=== PATIENT | male | born 1940 | race Caucasian/White ===

== ENCOUNTER → 2019-03-05 14:00 | Outpatient (BNVA) | payer MEDICARE, BC, SELFPAY | PROVIDERS: PCP Family Medicine; Visit Provider Nurse Practitioner Adult Health | DX: G56.21 Lesion of ulnar nerve, right upper limb (principal); I10 Essential (primary) hypertension; J44.9 Chronic obstructive pulmonary disease, unspecified | CPT/HCPCS: 95909; 99203 ==

== ENCOUNTER → 2019-03-06 09:22 | Outpatient (BNVA) | payer MEDICARE, BC, SELFPAY | PROVIDERS: PCP Family Medicine; Visit Provider Psychiatry & Neurology Neurology | DX: R69 Illness, unspecified (principal) ==

== ENCOUNTER → 2019-12-24 13:43 | Outpatient (BNVA) | payer MEDICARE, BC, SELFPAY | PROVIDERS: PCP Family Medicine; Referring Provider Family Medicine; Visit Provider Nurse Practitioner Gerontology | DX: R31.0 Gross hematuria (principal); N21.0 Calculus in bladder; J44.9 Chronic obstructive pulmonary disease, unspecified; I10 Essential (primary) hypertension | CPT/HCPCS: 99204; 99215 ==

== ENCOUNTER 2019-12-28 08:31 | Outpatient (CLI) | payer MEDICARE, BC, SELFPAY ==
[2019-12-30 17:22] LABS: COVID-19 RT-PCR Result NEGATIVE (Negative)
== END 2019-12-28 08:51 ==
PROVIDERS: Urology; PCP Family Medicine; Visit Provider Nurse Practitioner Gerontology
DX: Z11.59 Encounter for screening for other viral diseases (principal)
CPT/HCPCS: U0003

== ENCOUNTER 2019-12-31 06:48 | Day surgery (SDC) | payer MEDICARE, BC, SELFPAY ==
[2019-12-31] VITALS (9 sets, daily range): BP systolic 95–132; BP diastolic 52–74; PULSE 50–71; RESP 14–20; TEMP 35.9–36.4; O2SAT 92–95
--- NOTE | 2019-12-31 07:09 | HPE_ITS ---
Date of service: 12/31/19 Time of Service: 08:00 Assessment and Plan Assessment and plan (1) Bladder stone: Status: Acute (2) Gross hematuria: Status: Acute Assessment and plan: We will move ahead with cystoscopy and retrograde pyelogram to complete his hematuria workup. We will plan to use the Holmium laser to fragment his known bladder stone and evacuate the stone particles. There is a possibility that we may need to keep him overnight with bladder irrigation should significant bleeding be identified. History of Present Illness History of Present Illness Chief Complaint: Bladder stone Narrative: Bry is a 79-year-old male referred to urology by [facility]. He reports that starting in mid November he was having a change to his LUTS and gross hematuria. He was placed on Proscar. He was already on Flomax 0.4. He notes that nothing majorly changed over the course of time. He says that a urine was taken for question of a UTI due to the dysuria and change of the LUTS. He was treated with Bactrim. He noted that he felt better but then within a week he returned to his PCPs office and again was tested for question of a UTI. He was also sent to [facility] for a urology referral. However they were unable to see him until January. He reports that in December his frequent urination was dysuria plus hematuria continued. He again saw his PCPs office they ordered an ultrasound to find a stone in the bladder. After ultrasound was completed he was then referred to our office. Patient has a history of kidney stones. His first that he mentions was in 2011. He then had another stone in 2013 this 1 was removed from his bladder (Dr Powers at [facility] [place] He notes that his current symptoms are very similar to his previous bladder stone. He has not seen any gross blood in the urine for the past week. His severe pain has resolved as well. Review of Systems Narrative: No fevers or chills No vision change or dysphasia No diabetes or thyroid dysfunction Hx COPD. No sputum production or hemoptysis No chest pain or palpitations No nausea, vomiting, hepatitis, ulcers, jaundice, diarrhea or constipation No seizures, strokes or peripheral neuropathy No bleeding disorders or anemia No gout. Hx compression fracture spine PFSH Social History Smoking/Tobacco Use Status: Former Tobacco Use Quit Date: 06/13/97 Alcohol Intake: current Alcohol Intake frequency: a few times a month Alcohol type: hard liquor Drug use: Never Substance use type: does not use Do you feel safe at home: Yes Do you feel safe in your relationship?: Yes Meds Home Medications and Allergies Home Medications Medication Instructions Recorded Confirmed Type alendronate 70 mg PO .Tuesday08/07/14 12/31/19 History aspirin [Aspir 81] 81 mg PO DAILY 08/07/14 12/31/19 History cholecalciferol (vitamin D3) 1 tab PO DAILY 08/07/14 12/31/19 History zdfmpujtxdq-eotmwhdixwb-yux D3 2 tab PO DAILY 08/07/14 12/31/19 History rredtmrd-mgy-MZ-lycopen-lutein 1 tab PO DAILY 08/07/14 12/31/19 History [Centrum Silver Tablet] naproxen 500 mg PO PRN PRN 08/07/14 12/31/19 History omega-3 fatty acids-fish oil 1 tab PO DAILY 08/07/14 12/31/19 History rosuvastatin [Crestor] 40 mg PO HS 08/07/14 12/31/19 History tiotropium bromide [Spiriva] 2 puff INHALATION DAILY 08/07/14 12/24/19 History diltiazem HCl 120 mg 120 mg PO DAILY 03/02/19 12/31/19 History capsule,extended release 24 hr, controlled diltiazem HCl 300 mg 300 mg PO DAILY 03/02/19 12/31/19 History capsule,extended release 24 hr lisinopril 40 mg tablet 40 mg PO DAILY 03/02/19 12/31/19 History naproxen sodium 220 mg capsule 220 mg PO Q12H 03/02/19 12/31/19 History tamsulosin 0.4 mg capsule 0.4 mg PO DAILY 03/05/19 12/31/19 History finasteride 5 mg tablet 5 mg PO DAILY 12/24/19 12/31/19 History umeclidinium [Incruse Ellipta] 1 inh INHALATION DAILY 12/27/19 12/31/19 History Allergies Allergy/AdvReac Type Severity Reaction Status Date / Time morphine Allergy Severe skin Unverified 12/31/19 06:54 crawling atenolol Allergy Unverified 12/31/19 06:54 bupropion HCl Allergy Unverified 12/31/19 06:54 [From Wellbutrin] Exam Const General: cooperative, healthy appearing, comfortable and no acute distress Neck Neck: supple Resp Effort & Inspection: decreased respiratory effort Auscultation: diminished lung sounds Cardio Rate: regular rate Rhythm: regular rhythm GI Palpation: soft and no masses Neuro General: patient alert, patient awake and patient oriented x3 Results Last Vital Signs Temp 36.2 C L 12/31/19 07:02 Pulse 71 12/31/19 07:02 Resp 16 12/31/19 07:02 BP 124/74 12/31/19 07:02 Pulse Ox 92 L 12/31/19 07:02 COVID-19 Screening Have you,or household,traveled outside [place] in last 14 days?: Yes Had IN PERSON contact w/suspected or confirmed C-19 person: No
[2019-12-31] MEDS: Lactated Ringers 1,000 ML 80 ML IV (07:21)
--- NOTE | 2019-12-31 08:15 | DI.RAD_ITS ---
EXAM: XR RETROGRADE IN OR CLINICAL HISTORY: bladder stone TECHNIQUE: 2D and realtime digital imaging was performed. CONTRAST MATERIAL: Refer to procedure report. COMPARISON: No exams were available for comparison FINDINGS: Fluoroscopy was provided for Dr. Samaniego during the performance of a retrograde evaluation of the sincere l collecting system. Please refer to the procedure report for complete details. Fluoro time: 25.7 seconds IMPRESSION: RADIATION DOSE DELIVERED:
[2019-12-31] MEDS: Albuterol/Ipratropium 3 ML UPD VIAL (09:00)
[2019-12-31] MEDS: ceFAZolin 1 GM/50 ML BAG IVPB (09:00)
[2019-12-31] MEDS: Omnipaque 300 MG/ML 50 ML BTL (09:35)
--- NOTE | 2019-12-31 10:16 | W.PM.OP ---
Date of service: 12/31/19 Time of Service: 10:16 Operative Note Operative Note DATE OF PROCEDURE: 12/31/19 PRE-OP DIAGNOSIS: 1. Gross Hematuria 2. Bladder Stone POST-OP DIAGNOSIS: same PROCEDURE: Cystoscopy, bilateral retrograde pyelogram, Holmium laser lithotripsy of bladder stones SURGEON: Nimesh Samaniego ANESTHESIA: spinal ESTIMATED BLOOD LOSS: 20 PATHOLOGY: other (stones for chemical analysis) COMPLICATIONS: None Patient was transported to: PACU Patient's condition: stable Implants: 18 Portuguese Mathews catheter Indications: This is a 79-year-old gentleman who had been seen and his primary care providers for lower urinary tract symptoms. He had dysuria and gross hematuria. On one occasion, he was treated successfully for urinary tract infection. When his symptoms recurred, a renal ultrasound was obtained. A stone was found within his bladder. He presents now for cystoscopy and retrograde pyelogram to complete his hematuria work-up. We will address his stones as well. Findings: Four separate bladder stones Procedure Description: The patient was given preoperative IV antibiotics. After successful induction of spinal anesthesia, he was placed in the dorsal lithotomy position. His genitalia was prepped and draped sterilely. 2% Xylocaine jelly was instilled into the urethra to act as a local anesthetic. A 22 Portuguese rigid cystoscope was passed through the urethra into the bladder. The urethra and bladder were inspected with a 30 degree lens. The pendulous, bulbous and membranous urethra was all appeared normal with no strictures. The prostatic urethra showed some lateral lobe enlargement with no significant median lobe. The bladder neck was entered the bladder mucosa was inspected. At the base of the bladder, for a yellow-colored, smooth stones were identified. Each of these stones measured up to 2 cm in dimension. Both ureteral orifice ease could be visualized. Each orifice was cannulated with a 6 Portuguese access catheter and a retrograde film was obtained by injecting Omnipaque through the access catheter under fluoroscopic guidance. Both ureters and collecting systems appeared normal with no filling defects. We then reinspected the remainder of the bladder mucosa and no papillary or nodular tumors were seen. We then utilized a 1000 ?m holmium laser fiber to fragment the visible bladder stones. We used a power setting of 800 and a rate of 8. The stones fragmented well we were able to evacuate all of the stone fragments and send them off to the lab for chemical analysis. At the completion of the procedure, no large stone burden was seen within the bladder. The bladder was filled with irrigant. An 18 Portuguese Mathews catheter was passed through the urethra into the bladder. The catheter balloon was inflated with 10 cc of sterile water and the catheter was hooked to gravity drainage. We will plan on removing the catheter when his spinal anesthetic wears off. He was taken to the recovery room in stable condition.
[2019-12-31] MEDS: Phenazopyridine 200 MG TAB PO (12:11)
--- NOTE | 2019-12-31 13:01 | W.PM.DSUDISC ---
Discharge Plan Disposition Patient Disposition: HOME Condition: Stable Discharge Details Attending Provider: Nimesh Samaniego Primary Care Provider: Nghia Clifton Home Meds and New Rx's Prescriptions: No Action tamsulosin [Flomax] 0.4 mg capsule 0.4 mg PO DAILY RF: 0 finasteride 5 mg tablet 5 mg PO DAILY RF: 0 diltiazem HCl [DILT-XR] 120 mg capsule,ext.rel 24h degradable 120 mg PO DAILY RF: 0 lisinopril 40 mg tablet 40 mg PO DAILY RF: 0 diltiazem HCl [Cartia XT] 300 mg capsule,extended release 24hr 300 mg PO DAILY RF: 0 naproxen sodium [Aleve] 220 mg capsule 220 mg PO Q12H RF: 0 alendronate 70 MG tablet 70 mg PO .TUESDAY MORNING RF: 0 aspirin [Aspir-81] 81 MG tablet,delayed release (DR/EC) 81 mg PO DAILY RF: 0 naproxen 500 MG tablet 500 mg PO PRN PRNRF: 0 cholecalciferol (vitamin D3) 1,000 UNIT capsule 1 tab PO DAILY RF: 0 rosuvastatin [Crestor] 40 MG tablet 40 mg PO HS RF: 0 Spiriva with HandiHaler 18 MCG capsule, w/inhalation device 2 puff Inhalation DAILY RF: 0 Centrum Silver 1 EACH tablet 1 tab PO DAILY RF: 0 omega-3 fatty acids-fish oil 1 EACH capsule 1 tab PO DAILY RF: 0 ddcgqbwbjyg-eypxhomyaeu-qvi D3 1 EACH tablet 2 tab PO DAILY RF: 0 Incruse Ellipta 62.5 mcg/actuation blister with device 1 inh INHALATION DAILY RF: 0 Discharge Instructions Additional Instructions: Followup 2 to 3 weeks to review stone analysis Activity:: Activity as Tolerated Shower/Bathe:: 24 hours Diet:: As Tolerated Discharge Orders Discharge Orders: Discharge Order (Routine); Ordered 12/31/19 Ordered By: Nimesh Samaniego DS: Diagnosis Discharge Diagnosis (1) Bladder stone: Status: Acute (2) Gross hematuria: Status: Acute
== END 2019-12-31 13:18 | disposition home or self-care (01) ==
PROVIDERS: PCP Family Medicine; Visit Provider Urology
PROC: (CPT 52317; principal; 2019-12-31 08:30)
DX: N21.0 Calculus in bladder (principal); R31.0 Gross hematuria; R30.0 Dysuria
CPT/HCPCS: 52317; 52005; NC; 74420; 82365; J0690; J2001; J2250; J2405; J7620; Q9967

== ENCOUNTER → 2020-01-24 12:38 | Outpatient (BNVA) | payer MEDICARE, BC, SELFPAY | PROVIDERS: PCP Family Medicine; Referring Provider Family Medicine; Visit Provider Nurse Practitioner Gerontology | DX: N21.0 Calculus in bladder (principal); R31.0 Gross hematuria; J44.9 Chronic obstructive pulmonary disease, unspecified; I10 Essential (primary) hypertension | CPT/HCPCS: 99213 ==

== ENCOUNTER → 2023-02-02 08:00 | Outpatient (BNVA) | payer MEDICARE, BC, SELFPAY | PROVIDERS: PCP Family Medicine; Referring Provider Family Medicine; Visit Provider Psychiatry & Neurology Neurology | DX: R26.89 Other abnormalities of gait and mobility (principal); I10 Essential (primary) hypertension; J44.9 Chronic obstructive pulmonary disease, unspecified | CPT/HCPCS: 99205 ==

== ENCOUNTER → 2023-03-23 09:02 | Outpatient (BNVA) | payer MEDICARE, BC, SELFPAY | PROVIDERS: PCP Family Medicine; Referring Provider Family Medicine; Visit Provider Psychiatry & Neurology Neurology | DX: R26.89 Other abnormalities of gait and mobility (principal); G23.8 Other specified degenerative diseases of basal ganglia; I10 Essential (primary) hypertension; J44.9 Chronic obstructive pulmonary disease, unspecified | CPT/HCPCS: 99214 ==

== ENCOUNTER → 2024-02-28 13:36 | Outpatient (BNVA) | payer MEDICARE, BC, SELFPAY | PROVIDERS: PCP Family Medicine; Referring Provider Family Medicine; Visit Provider Psychiatry & Neurology Neurology | DX: I63.9 Cerebral infarction, unspecified (principal); R41.3 Other amnesia | CPT/HCPCS: 99215 ==